=== PATIENT | female | born 1970 | race Caucasian/White ===

== ENCOUNTER → 2021-05-22 | Outpatient (CLI) | payer OTHER ==
[~2021-05-22] MED LIST: ESTRACE2 MG PO; FLOMAX0.4 MG PO; IBU600 MG PO; NORCO 5-325 TA1 EACH PO; SYNTHROID75 MCG PO; VITAMIN D21250 MCG PO
== END ==
LOC: EXRD 12:46
DX: E04.0 Nontoxic diffuse goiter (principal); E04.2 Nontoxic multinodular goiter
CPT/HCPCS: 76536